=== PATIENT | male | born 1980 | race African-American/Black ===

== ENCOUNTER 2018-12-08 18:17 | Emergency (ER) | payer OTHER ==
[~2018-12-08] VITALS: Ht 175.3 cm; Wt 82.6 kg
[2018-12-08 19:20] VITALS: BP 117/83
== END 2018-12-08 19:48 | disposition home or self-care (01) ==
LOC: ER 18:17
DX: S50.861A Insect bite (nonvenomous) of right forearm, initial encounter (principal); F17.210 Nicotine dependence, cigarettes, uncomplicated; W57.XXXA Bitten or stung by nonvenomous insect and other nonvenomous arthropods, initial encounter; Y93.89 Activity, other specified; Y92.89 Other specified places as the place of occurrence of the external cause; Y99.8 Other external cause status